=== PATIENT | female | born 1990 | race Caucasian/White ===

== ENCOUNTER 2017-11-14 08:51 | Emergency (ER) | payer OTHER, MEDICAID, SELFPAY ==
[2017-11-14 08:53] VITALS: BP 143/59; PULSE 88; RESP 16; TEMP 36.7; O2SAT 99; BMI 18.0
--- NOTE | 2017-11-14 09:05 | ED.DCSUM_ITS ---
- ER Visit Summary Date of Service: 11/14/17 Chief Complaint: Laceration to right arm History of Present Illness: The patient is a 26 F otherwise healthy presents laceration to her right arm. She was cleaning her garage. She knocked over a metal shelf.. She did not strike her head. She denies other injury. The patient is otherwise healthy. She is unsure of her last tetanus but thinks it may have been in the past 10 years. She did apply pressure and presented here for further evaluation. Physical Examination: Exam is relatively unremarkable. The patient has a 2 cm laceration to the dorsal aspect of the right forearm approximately 5 cm distal to the AC joint. There is minimal active bleeding. Pulses are normal. Sensation is preserved. Compartments are soft. Test Results: [] Emergency Department Course and Treatment: Since wound was anesthetized. It was irrigated and explored. There was no evidence of retained body. The wound was closed with simple interrupted suture. Patient tolerated this without issue. Bacitracin dressing was applied. She was counseled on wound care and reasons to return. Her tetanus was updated. She will be discharged home. Treatment Plan: [] Disposition: Discharge Impression:. 2 cm right forearm laceration with repair This note was generated with [employer] dictation software. It may contain incorrect words, spelling, and punctuation that were not noted in review of the chart prior to signing ED Disposition - Plan for ED Patient: Chief Complaint: Laceration Instructions: ED Laceration All Referrals: [facility] [Primary Care Provider] - 10 Day for suture removal
[2017-11-14] MEDS: Diphth,Pertuss(Acell),Tet Vac 0.5 ML Vial IM (09:08)
[2017-11-14 09:22] VITALS: PULSE 84; RESP 16; O2SAT 98
== END 2017-11-14 09:23 | disposition home or self-care (01) ==
LOC: ED 09:22
PROVIDERS: Emergency Provider Emergency Medicine
DX: S51.811A Laceration without foreign body of right forearm, initial encounter (principal); W26.8XXA Contact with other sharp object(s), not elsewhere classified, initial encounter; Y93.9 Activity, unspecified; Y92.59 Other trade areas as the place of occurrence of the external cause
CPT/HCPCS: 12001; 90471; 90715; 99283